=== PATIENT | male | born 1990 | race Caucasian/White ===

== ENCOUNTER 2018-12-23 08:23 | Emergency (ER) | payer OTHER ==
[~2018-12-23] VITALS: Ht 177.8 cm; Wt 70.8 kg
--- NOTE | 2018-12-23 08:37 | NUR ---
patient [id number] and lapd from [facility], incustody, c/o alcohol withdrawal, last alcohol . On room air, breathing evenly and unlabored. Kept comfotable, will continue to monitor accordingly.
[2018-12-23] MEDS ORDERED: CHLORDIAZEPOXIDE HCL 25 MG CAPSULE ONE (08:46)
[2018-12-23] MEDS ORDERED: LORAZEPAM INJ 2 MG/ML VIAL ONE (08:47)
[2018-12-23] MEDS ORDERED: LORAZEPAM INJ 2 MG/ML VIAL IM ONE (09:00)
[2018-12-23] MEDS ORDERED: CHLORDIAZEPOXIDE HCL 25 MG CAPSULE PO ONE (09:00)
[2018-12-23 09:59] VITALS: BP 145/81
--- NOTE | 2018-12-23 09:59 | NUR ---
Patient discharged to home in stable condition. Written and verbal after care instructions given. Patient verbalizes understanding of instruction. Addendum: 12/23/18 at 1000 by LINH DISCHARGE ACCOMPANIED BY [employer] IN CUSTODY IN STABLE CONDITION, DENIES ANY PAIN OR DISCOMFORT.
== END 2018-12-23 09:59 ==
LOC: ER 08:33
DX: F10.239 Alcohol dependence with withdrawal, unspecified (principal); R56.9 Unspecified convulsions; Z86.19 Personal history of other infectious and parasitic diseases; Y90.9 Presence of alcohol in blood, level not specified
CPT/HCPCS: 70450; 96372; 99284; J2060